=== PATIENT | male | born 1995 | race Caucasian/White ===

== ENCOUNTER 2019-11-19 16:15 | Observation (INO) | payer OTHER ==
[2019-11-19] VITALS (9 sets, daily range): BP systolic 131–154; BP diastolic 79–94
[~2019-11-19] VITALS: Ht 187 cm; Wt 93.2 kg
--- NOTE | 2019-11-19 16:26 | ED Abdominal Pain ---
General Chief Complaint: Abdominal/GI Problems Stated Complaint: ABD PAIN Source of Information: Patient Exam Limitations: No Limitations History of Present Illness Date Seen by Provider: Nov 19, 2019 Time Seen by Provider: 16:25 Initial Comments To ER with right lower quadrant abdominal pain That began Saturday afternoon. It has gotten progressively worse since then. A little bit of nausea after he eats but no diarrhea. No vomiting. No fevers or chills. The pain does not radiate. The location of the pain has not changed since Saturday. No history of this. Timing/Duration: 1-2 Days Severity/Quality: Moderate Location: RLQ Radiation: No Radiation Activities at Onset: None Associated Symptoms: Nausea/Vomiting Allergies and Home Medications Allergies Coded Allergies: No Allergy Information Available (Unverified , 11/19/19) Patient Home Medication List Home Medication List Reviewed: Yes Review of Systems Review of Systems Constitutional: see HPI; No chills, No fever EENTM: No Symptoms Reported Respiratory: No Symptoms Reported Cardiovascular: No Symptoms Reported Gastrointestinal: See HPI, Abdominal Pain; Denies Nausea, Denies Vomiting Genitourinary: No Symptoms Reported Musculoskeletal: no symptoms reported Skin: no symptoms reported Psychiatric/Neurological: No Symptoms Reported Hematologic/Lymphatic: No Symptoms Reported Past Pmfleax-Ydkjgb-Ljbtcy Hx Patient Social History Alcohol Use: Denies Use Recreational Drug Use: No Smoking Status: Never a Smoker Recent Foreign Travel: No Contact w/Someone Who Travel: No Recent Hopitalizations: No Seasonal Allergies Seasonal Allergies: No Past Medical History Surgeries: Yes (dental) Respiratory: No Cardiac: No Neurological: No Genitourinary: No Gastrointestinal: No Musculoskeletal: No Endocrine: No HEENT: No Cancer: No Psychosocial: Yes ADD/ADHD Blood Disorders: No Adverse Reaction/Blood Tranf: No Physical Exam Vital Signs Vital Signs - First Documented 11/19/19 16:30 Temp 36.9 Pulse 80 Resp 20 B/P (MAP) 168/91 (116) Pulse Ox 98 Capillary Refill : Height/Weight/BMI Height: '" Weight: lbs. oz. kg; BMI Method: General Appearance: WD/WN, no apparent distress Neck: non-tender, full range of motion Respiratory: no respiratory distress, no accessory muscle use Cardiovascular: regular rate, rhythm, no murmur Gastrointestinal: normal bowel sounds, soft, tenderness (right lower quadrant McBurney's point) Extremities: normal range of motion, non-tender Neurologic/Psychiatric: alert, normal mood/affect, oriented x 3 Skin: normal color, warm/dry Progress/Results/Core Measures Results/Orders Lab Results Laboratory Tests Test 11/19/19 16:28 Range/Units White Blood Count 5.8 4.3-11.0 10^3/uL Red Blood Count 5.00 4.35-5.85 10^6/uL Hemoglobin 14.9 13.3-17.7 G/DL Hematocrit 43 40-54 % Mean Corpuscular Volume 86 80-99 FL Mean Corpuscular Hemoglobin 30 25-34 PG Mean Corpuscular Hemoglobin Concent 35 32-36 G/DL Red Cell Distribution Width 12.2 10.0-14.5 % Platelet Count 246 130-400 10^3/uL Mean Platelet Volume 10.1 7.4-10.4 FL Neutrophils (%) (Auto) 58 42-75 % Lymphocytes (%) (Auto) 25 12-44 % Monocytes (%) (Auto) 14 H 0-12 % Eosinophils (%) (Auto) 1 0-10 % Basophils (%) (Auto) 1 0-10 % Neutrophils # (Auto) 3.4 1.8-7.8 X 10^3 Lymphocytes # (Auto) 1.5 1.0-4.0 X 10^3 Monocytes # (Auto) 0.8 0.0-1.0 X 10^3 Eosinophils # (Auto) 0.1 0.0-0.3 10^3/uL Basophils # (Auto) 0.0 0.0-0.1 10^3/uL Sodium Level 139 135-145 MMOL/L Potassium Level 3.9 3.6-5.0 MMOL/L Chloride Level 103 98-107 MMOL/L Carbon Dioxide Level 25 21-32 MMOL/L Anion Gap 11 5-14 MMOL/L Blood Urea Nitrogen 15 7-18 MG/DL Creatinine 1.11 0.60-1.30 MG/DL Estimat Glomerular Filtration Rate > 60 BUN/Creatinine Ratio 14 Glucose Level 89 70-105 MG/DL Calcium Level 9.2 8.5-10.1 MG/DL Corrected Calcium 8.8 8.5-10.1 MG/DL Total Bilirubin 0.8 0.1-1.0 MG/DL Aspartate Amino Transf (AST/SGOT) 15 5-34 U/L Alanine Aminotransferase (ALT/SGPT) 25 0-55 U/L Alkaline Phosphatase 79 40-136 U/L C-Reactive Protein High Sensitivity 4.35 H 0.00-0.50 MG/DL Total Protein 7.7 6.4-8.2 GM/DL Albumin 4.5 3.2-4.5 GM/DL My Orders Orders - MARGARETTE HOLT TRANSFER DRIVER Cbc With Automated Diff (11/19/19 16:24) Hs C Reactive Protein (11/19/19 16:24) Comprehensive Metabolic Panel (11/19/19 16:24) Ua Culture If Indicated (11/19/19 16:24) Ct Abd/Pelv W (Appendicitis) (11/19/19 16:24) Iohexol Injection (Omnipaque 350 Mg/Ml 1 (11/19/19 16:45) Received Contrast (Hold Metformin- Contr (11/19/19 16:45) Sodium Chloride Flush (Catheter Flush Sy (11/19/19 16:45) Ns (Ivpb) (Sodium Chloride 0.9% Ivpb Bag (11/19/19 16:45) Medications Given in ED Current Medications Medications Dose Ordered Sig/Jeff Route Start Time Stop Time Status Last Admin Dose Admin Iohexol 100 ml ONCE ONCE IV 11/19/19 16:45 11/19/19 16:46 DC 11/19/19 17:04 100 ML Sodium Chloride 10 ml NEEDED PRN IV 11/19/19 16:45 11/19/19 17:04 10 ML Sodium Chloride 100 ml ONCE ONCE IV 11/19/19 16:45 11/19/19 16:46 DC 11/19/19 17:04 80 ML Vital Signs/I&O 11/19/19 16:30 Temp 36.9 Pulse 80 Resp 20 B/P (MAP) 168/91 (116) Pulse Ox 98 Departure Communication (Admissions) Time/Spoke to Admitting Phy: 17:20 Dr. Hidalgo here to see the patient, plans to take to the operating room. Impression Primary Impression: Appendicitis Qualified Codes: K35.30 - Acute appendicitis with localized peritonitis, without perforation or gangrene Disposition: ADMITTED INPATIENT Condition: Stable Admissions Decision to Admit Reason: Admit from ER (General) Decision to Admit/Date: Nov 19, 2019 Time/Decision to Admit Time: 17:04 MARGARETTE HOLT APRN Nov 19, 2019 16:26
[2019-11-19 16:35] LABS: BASOPHILS % (AUTO) 1 % (0-10); EOSINOPHILS # (AUTO) 0.1 10^3/uL (0.0-0.3); EOSINOPHILS % (AUTO) 1 % (0-10); HEMATOCRIT 43 % (40-54); HEMOGLOBIN 14.9 G/DL (13.3-17.7); LYMPHOCYTES # (AUTO) 1.5 X 10^3 (1.0-4.0); LYMPHOCYTES % (AUTO) 25 % (12-44); MEAN CORPUSCULAR HEMOGLOBIN 30 PG (25-34); MEAN CORPUSCULAR HGB CONC 35 G/DL (32-36); MEAN CORPUSCULAR VOLUME 86 FL (80-99); MEAN PLATELET VOLUME 10.1 FL (7.4-10.4); MONOCYTES # (AUTO) 0.8 X 10^3 (0.0-1.0); MONOCYTES % (AUTO) 14 % (0-12); NEUTROPHILS # (AUTO) 3.4 X 10^3 (1.8-7.8); NEUTROPHILS % (AUTO) 58 % (42-75); PLATELET COUNT 246 10^3/uL (130-400); RED CELL DISTRIBUTION WIDTH 12.2 % (10.0-14.5); WHITE BLOOD COUNT 5.8 10^3/uL (4.3-11.0)
[2019-11-19] MEDS ORDERED: CATHETER FLUSH 10 ML SYR IV PRN (16:45)
[2019-11-19] MEDS ORDERED: NS 100 ML (IVPB) BAG IV ONE (16:45)
[2019-11-19] MEDS ORDERED: HOLD METFORMIN - RECEIVED CONTRAST 20 ML VIAL IV SCH (16:45)
[2019-11-19] MEDS ORDERED: IOHEXOL 350 MG/ML 100 ML (OMNIPAQUE 350) VIAL IV ONE (16:45)
[2019-11-19 16:49] LABS: ALBUMIN 4.5 GM/DL (3.2-4.5); CHLORIDE 103 MMOL/L (98-107); POTASSIUM 3.9 MMOL/L (3.6-5.0); SODIUM 139 MMOL/L (135-145)
[2019-11-19 16:50] LABS: CALCIUM 9.2 MG/DL (8.5-10.1)
[2019-11-19 16:51] LABS: GLUCOSE 89 MG/DL (70-105); TOTAL PROTEIN 7.7 GM/DL (6.4-8.2)
[2019-11-19 16:52] LABS: CARBON DIOXIDE 25 MMOL/L (21-32)
[2019-11-19 16:53] LABS: BILIRUBIN,TOTAL 0.8 MG/DL (0.1-1.0)
[2019-11-19 16:54] LABS: ALKALINE PHOSPHATASE 79 U/L (40-136)
[2019-11-19 16:55] LABS: CREATININE SERUM 1.11 MG/DL (0.60-1.30); GFR ESTIMATED > 60
[2019-11-19 16:56] LABS: BUN/CREATININE RATIO 14
[2019-11-19 16:58] LABS: ALANINE AMINOTRANSFERASE 25 U/L (0-55)
--- NOTE | 2019-11-19 17:19 | Diagnostic Imaging Report ---
CLINICAL INDICATION: Patient with right lower quadrant pain x2 days with nausea, fatigue, and loss of appetite. Rule out appendicitis. EXAM: Axial CT scan of the abdomen and pelvis performed with 100 mL of Omnipaque 350 IV contrast. Coronal and sagittal reformatted images were created. Auto Exposure Controls were utilized during the CT exam to meet ALARA standards for radiation dose reduction. COMPARISON: None. FINDINGS: Visualized lung bases are clear. Bones show no significant abnormality. There is a roughly 8 mm circumscribed low-density area involving the right lobe of liver near the dome, likely represents a cyst. Otherwise, liver is unremarkable. The spleen, pancreas, gallbladder, and adrenal glands are unremarkable. Both kidneys are unremarkable with no hydronephrosis, stone, or enhancing mass. Bladder is predominantly decompressed and unremarkable as visualized. There is diffuse enlargement of the appendix measuring at least 1.4 cm in greatest axial dimension. There is fat stranding adjacent to the appendix and there is ill-defined appendiceal wall due to the inflammation. There is no intra-abdominal free air or drainable fluid collection. There is no intestinal obstruction. Subcentimeter lymph nodes in the pericecal region are likely reactive. Prostate gland is unremarkable. There is no intra-abdominal free fluid seen. Intestines show no other significant abnormality. Extra-abdominal and extra-pelvis soft tissue structures are unremarkable. IMPRESSION: There is acute appendicitis with no evidence of abscess or intra-abdominal free air. Results of this report discussed with Josué Onofre APRN via the telephone on 11/19/2019 at 1715 hours. Dictated by: Dictated on workstation # [id number]
--- NOTE | 2019-11-19 17:29 | Consultation - Surgery ---
History of Present Illness History of Present Illness Patient Consulted On(judy/time) 11/19/19 17:24 Time Seen by Provider: 17:01 History of Present Illness Surgery asked to consult regarding RLQ pain. HPI per ED: To ER with right lower quadrant abdominal pain That began Saturday afternoon. It has gotten progressively worse since then. A little bit of nausea after he eats but no diarrhea. No vomiting. No fevers or chills. The pain does not radiate. The location of the pain has not changed since Saturday. No history of this. Timing/Duration: 1-2 Days Severity/Quality: Moderate Location: RLQ Radiation: No Radiation Activities at Onset: None Associated Symptoms: Nausea/Vomiting Pt states he has never had pain like this before, rates pain as 6 out of 10. Has been achey with occasional sharp pain. Allergies and Home Medications Allergies Coded Allergies: No Allergy Information Available (Unverified , 11/19/19) Patient Home Medication List Home Medication List Reviewed: Yes (Vivance) Past Zbgncqb-Wlwogv-Ufrsgu Hx Patient Social History Alcohol Use: Denies Use Recreational Drug Use: No Smoking Status: Never a Smoker Recent Foreign Travel: No Contact w/Someone Who Travel: No Recent Infectious Disease Expo: No Recent Hopitalizations: No Seasonal Allergies Seasonal Allergies: No Surgeries History of Surgeries: Yes (dental- wisdom teeth removed) Respiratory History of Respiratory Disorde: No Cardiovascular History of Cardiac Disorders: No Neurological History of Neurological Disord: No Genitourinary History of Genitourinary Disor: No Gastrointestinal History of Gastrointestinal Di: No Musculoskeletal History of Musculoskeletal Dis: No Endocrine History of Endocrine Disorders: No HEENT History of HEENT Disorders: No Cancer History of Cancer: No Psychosocial History of Psychiatric Problem: Yes Behavioral Health Disorders: ADD/ADHD Blood Transfusions History of Blood Disorders: No Adverse Reaction to a Blood Tr: No Family Medical History Significant Family History: Heart Disease (3 out of 4 Gparents with CABG), Other Conditions/Hx (pt states parents have no medical problems) Review of Systems-General Constitutional: No chills, No diaphoresis, No malaise EENTM: No blurred vision, No double vision, No mouth pain, No mouth swelling, No epistaxis Respiratory: No cough, No dyspnea on exertion Cardiovascular: No chest pain, No palpitations Gastrointestinal: abdominal pain; No nausea, No vomiting Genitourinary: No dysuria, No frequency, No hematuria Musculoskeletal: No joint pain, No joint swelling, No muscle pain, No muscle stiffness Skin: No change in color, No change in hair/nails Psychiatric/Neurological: Denies Anxiety, Denies Depressed, Denies Seizure, Denies Tremors Other pt denies any hx of abnormal bleeding or bruising Physical Exam-General Problems Physical Exam Vital Signs Vital Signs - First Documented 11/19/19 16:30 Temp 36.9 Pulse 80 Resp 20 B/P (MAP) 168/91 (116) Pulse Ox 98 Capillary Refill : Less Than 3 Seconds General Appearance: WD/WN, no apparent distress Eyes: Bilateral Eye PERRL, Bilateral Eye EOMI HEENT: pharynx normal; No scleral icterus (R), No scleral icterus (L) Neck: non-tender, full range of motion, supple, normal inspection Respiratory: chest non-tender, lungs clear, normal breath sounds, no respiratory distress, no accessory muscle use Cardiovascular: regular rate, rhythm, no murmur Gastrointestinal: soft, no organomegaly; No distended, No guarding, No rebound; tenderness (RLQ and flank) Back: no CVA tenderness, no vertebral tenderness Extremities: normal range of motion, non-tender, normal inspection, no pedal edema, no calf tenderness, normal capillary refill Neurologic/Psychiatric: livestock inspector II-XII nml as tested, no motor/sensory deficits, alert, normal mood/affect, oriented x 3 Skin: normal color, warm/dry Lymphatic: no adenopathy (neck, axilla or groin) Data Review Labs Laboratory Tests 11/19/19 16:28: White Blood Count 5.8, Red Blood Count 5.00, Hemoglobin 14.9, Hematocrit 43, Mean Corpuscular Volume 86, Mean Corpuscular Hemoglobin 30, Mean Corpuscular Hemoglobin Concent 35, Red Cell Distribution Width 12.2, Platelet Count 246, Mean Platelet Volume 10.1, Neutrophils (%) (Auto) 58, Lymphocytes (%) (Auto) 25, Monocytes (%) (Auto) 14H, Eosinophils (%) (Auto) 1, Basophils (%) (Auto) 1, Neutrophils # (Auto) 3.4, Lymphocytes # (Auto) 1.5, Monocytes # (Auto) 0.8, Eosinophils # (Auto) 0.1, Basophils # (Auto) 0.0, Sodium Level 139, Potassium Level 3.9, Chloride Level 103, Carbon Dioxide Level 25, Anion Gap 11, Blood Urea Nitrogen 15, Creatinine 1.11, Estimat Glomerular Filtration Rate > 60, BUN/Creatinine Ratio 14, Glucose Level 89, Calcium Level 9.2, Corrected Calcium 8.8, Total Bilirubin 0.8, Aspartate Amino Transf (AST/SGOT) 15, Alanine Aminotransferase (ALT/SGPT) 25, Alkaline Phosphatase 79, C-Reactive Protein High Sensitivity 4.35H, Total Protein 7.7, Albumin 4.5 Radiology Date of Exam:11/19/19 CT ABD/PELV W (APPENDICITIS) CLINICAL INDICATION: Patient with right lower quadrant pain x2 days with nausea, fatigue, and loss of appetite. Rule out appendicitis. EXAM: Axial CT scan of the abdomen and pelvis performed with 100 mL of Omnipaque 350 IV contrast. Coronal and sagittal reformatted images were created. Auto Exposure Controls were utilized during the CT exam to meet ALARA standards for radiation dose reduction. COMPARISON: None. FINDINGS: Visualized lung bases are clear. Bones show no significant abnormality. There is a roughly 8 mm circumscribed low-density area involving the right lobe of liver near the dome, likely represents a cyst. Otherwise, liver is unremarkable. The spleen, pancreas, gallbladder, and adrenal glands are unremarkable. Both kidneys are unremarkable with no hydronephrosis, stone, or enhancing mass. Bladder is predominantly decompressed and unremarkable as visualized. There is diffuse enlargement of the appendix measuring at least 1.4 cm in greatest axial dimension. There is fat stranding adjacent to the appendix and there is ill-defined appendiceal wall due to the inflammation. There is no intra-abdominal free air or drainable fluid collection. There is no intestinal obstruction. Subcentimeter lymph nodes in the pericecal region are likely reactive. Prostate gland is unremarkable. There is no intra-abdominal free fluid seen. Intestines show no other significant abnormality. Extra-abdominal and extra-pelvis soft tissue structures are unremarkable. IMPRESSION: There is acute appendicitis with no evidence of abscess or intra-abdominal free air. Results of this report discussed with Josué Onofre APRN via the telephone on 11/19/2019 at 1715 hours. Dictated on workstation # [id number] Dict: 11/19/19 1710 Trans: 11/19/19 1719 [facility] [id number] Interpreted by: DRAA ZABALA MD Assessment/Plan Assessment/Plan Assessment/Plan Acute Appendicitis - Retrocecal Pt has acute appendicitis and needs appendectomy. Plan to start IV fluids, IV ABX, pain control, anti-emetics as needed. Will go to the OR for Laparoscopic Appendectomy, possible open. Discussed the procedure with pt; risks and complications not limited to pain, bleeding, infection, scar, damage to bowel and need for further procedure. All questions answered to his satisfaction. Will probably send pt home tonight, unless there is a bad abscess not seen on CT. GRICELDA JEWELL DO Nov 19, 2019 17:29
[2019-11-19] MEDS ORDERED: fentaNYL INJECTION 100 MCG/2 ML AMP ONE ×2 (17:49→17:58)
[2019-11-19] MEDS ORDERED: MIDAZOLAM 2 MG/2 ML (VERSED) VIAL ONE (17:49)
[2019-11-19] MEDS ORDERED: BUP/EPI 0.5% 1:200,000 (MARCAINE) 10ML VIAL IJ ONE (17:51)
[2019-11-19] MEDS ORDERED: morphine INJ 10 MG/ML 1ML (SYR OR VIAL) ONE ×2 (17:57→18:45)
[2019-11-19] MEDS ORDERED: ONDANSETRON 4 MG/2 ML (SDV) Z0FRAN ONE ×2 (17:58→18:02)
[2019-11-19] MEDS ORDERED: NEOSTIGMINE 3 MG/3 ML VIAL ONE (18:02)
[2019-11-19] MEDS ORDERED: LIDOCAINE PF 2% 5 ML (XYLOCAINE) VIAL ONE (18:02)
[2019-11-19] MEDS ORDERED: GLYCOPYRROLATE 0.2 MG/ML (ROBINUL) 2 ML VIAL ONE (18:02)
[2019-11-19] MEDS ORDERED: SEVOFLURANE (ULTANE) 15 ML INHAL SOLN ONE ×8 (18:02→19:49)
[2019-11-19] MEDS ORDERED: proPOfol 200 MG/20 ML (DIPRIVAN) VIAL IV ONE (18:02)
[2019-11-19] MEDS ORDERED: ROCURONIUM 10 MG/ML 5 ML SYRINGE IV ONE (18:02)
[2019-11-19] MEDS: LACTATED RINGERS 1,000 ML IV PRN ×2 (18:05→19:18)
[2019-11-19] MEDS ORDERED: ceFAZolin INJECTION 2,000 MG ONE (18:18)
[2019-11-19] MEDS ORDERED: ceFAZolin 2 GM IV Premixed 50 ML IV ONE (18:45)
[2019-11-19] MEDS ORDERED: HYDROmorphone 2 MG/ML VIAL (DILAUDID) IV ONE (19:45)
[2019-11-19] MEDS ORDERED: morphine INJ 10 MG/ML 1ML (SYR OR VIAL) IVP ONE (19:45)
[2019-11-19] MEDS ORDERED: MEPERIDINE (DEMEROL) INJ 50 MG/ML IVP ONE (19:45)
[2019-11-19] MEDS ORDERED: ONDANSETRON 4 MG/2 ML (SDV) Z0FRAN IVP PRN (19:45)
--- NOTE | 2019-11-19 19:51 | Progress Note-Post Operative ---
Post-Operative Progess Note Surgeon (s)/Skin Tanner (s) Surgeon GRICELDA JEWELL DO Skin Tanner: EARL Perez and EARL Candelario Pre-Operative Diagnosis acute appy Post-Operative Diagnosis same Procedure & Operative Findings Date of Procedure 11/19/19 Procedure Performed/Findings lap appy Anesthesia Type GET Estimated Blood Loss Estimated blood loss (mL): minimal Specimens/Packing Specimens Removed GRICELDA Romero DO Nov 19, 2019 19:51
[2019-11-19] MEDS ORDERED: HYDR-4226 PO (19:57)
--- NOTE | 2019-11-19 19:58 | Discharge Inst-Surgical ---
Discharge Inst-Surgical Depart Medication/Instructions New, Converted or Re-Newed RX: RX Given to Pt/Family Patient Instructions Follow up Appt: Make appointment for 1 week. [phone] Instructions: No lifting greater than 20 pounds. No strenuous activity. May shower in 24 hours, no tub bath or soaking. Use incentive spirometer at home as directed. No Smoking Skin/Wound Care: May remove bandages in am. You need to leave the Dermabond on incision it will fall off on it's own. Symptoms to Report: Appetite Changes, Extremity Discoloration, Numbness/Tingling, Swelling Increased, Bleeding Excessive, Eyesight Changes, Pain Increased, Urine Color Change, Constipation(Persistent), Fever over 101 degree F, Pain/Pressure in chest, Urinating Difficulty, Cough Up/Vomit Blood, Heart Beat Irreg/Pounding, Pain/Pressure in jaw, Cramps in feet or legs, Lightheadedness, Pain/Pressure in shoulder, Diarrhea(Persistent), Memory Changes Suddenly, Questions/Concerns, Weight gain consecutive days, Dizziness/Fainting, Nausea/Vomiting, Shortness of Breath, Weight gain over 2 pounds If questions or concerns contact your physician Or seek help at emergency department. Activity Activity as Tolerated: Yes Activity Instructions: Avoid Stress to Incision Driving Instructions: No Driving/Refer to Dr. Kim Discharge Diet: No Restrictions Diet After 24 Hours: Clear Liquid if Nauseous If Any Problems/Questions/Issu: Contact Your Physician, Go to Emergency Room Skin/Wound Care Infection Signs and Symptoms: Increased Redness, Foul Odor of Wound, Increased Drainage, Skin Itchy or Has a Rash, Increased Swelling, Temperature Above 101 F Wound Care Comment: Heating pad to shoulder or neck tonight for pain. Bathing Instructions: Shower Stitches/Margaret/Dermabond Dis: Dermabond Ice Pack: Ice On and Off Site GRICELDA JEWELL DO Nov 19, 2019 19:58
--- NOTE | 2019-11-19 21:32 | Anesthesia-General Post-Op ---
General Patient Condition Mental Status/LOC: Same as Preop Cardiovascular: Satisfactory Nausea/Vomiting: Absent Respiratory: Satisfactory Pain: Controlled Complications: Absent Post Op Complications Complications None Follow Up Care/Instructions Patient Instructions None needed. Anesthesia/Patient Condition Patient Condition Patient is doing well, no complaints, stable vital signs, no apparent adverse anesthesia problems. No complications reported per nursing. ALEXANDRE GOODWIN CRNA Nov 19, 2019 21:32
[2019-11-19] MEDS ORDERED: HYDROcodone/APAP 5 MG/325 MG (LORTAB) TAB PO ONE (22:00)
[2019-11-19] MEDS ORDERED: ONDANSETRON 4 MG (ZOFRAN) ORAL DISSOLVE TAB PO ONE (22:15)
[2019-11-20 01:39] VITALS: BP 136/74
[2019-11-20] MEDS ORDERED: LACTATED RINGERS 1,000 ML IV ONE (01:55)
[2019-11-20] MEDS ORDERED: LACTATED RINGERS 1,000 ML IV SCH (02:15)
[2019-11-20] MEDS ORDERED: ONDANSETRON 4 MG (ZOFRAN) ORAL DISSOLVE TAB PO PRN (02:15)
[2019-11-20] MEDS ORDERED: morphine INJ 4 MG/ML 1 ML (VIAL/SYRINGE) IVP PRN (02:15)
[2019-11-20 04:00] VITALS: BP 119/68
[2019-11-20 04:45] VITALS: BP 125/80
--- NOTE | 2019-11-20 05:17 | NUR ---
2129 - Report received from pipe recovery specialist, This RN to room to assess patient, pt reports abd pain 10/01, ice was applied to abdomen to help with pain. Pt AO and on RA, this RN went over discharge paperwork with pt, instructed pt to walk, urinate, and drink water before discharge. Notified housekeeping lead of continued pain and prescription written by Dr. Hidalgo for pain medication, unable to fill script due to pharmacies being closed at this time. Dr. Hidalgo notified of continued pain and pts inability to fill his script until morning, order received for hydrocodone 5/325 PO once now. This RN to room to give pain medication, pt began feeling nausous and dry heaving, bucket and wet wash cloth provided. Dr. Hidalgo notified of nausea of removal of IV, order received for Zofran 4mg PO once now. 2144 - Zofran given to pt, sprite and saltine crackers provided. 2229 - Pt assisted to side of bed, continued nausea at this time. 2299 - Pain medication administered at this time as ordered by Dr. Hidalgo, pt has been unable to void, encouraged to stand up to use urinal and pt assisted to toilet. 0000 - VSS currently, abd pain 06/01, assisted pt to ambulate in frias. 0200 - pt has urinated at this time in the toilet, pt has vomited, Dr. Hidalgo notified, new orders received to keep pt overnight, start new IV, start LR at 150, Zofran 4mg PO q4 PRN, 2mg morphine q2 PRN pain. Pt notified of new orders and plan to keep overnight. 0230 - 20g IV started to right forearm, fluids connected, zofran given as ordered. will continue to monitor. 0500 - Pt assisted to toilet to void.
[2019-11-20 06:00] VITALS: BP 119/69
[2019-11-20 07:00] VITALS: BP 114/70
--- NOTE | 2019-11-20 07:50 | NUR ---
Dr Hidalgo notified of pt request for Zofran for n/v. order obtained and called to preferred pharmacy. pt information for discharge reviewed with prior shift. pt will leave icu to go home with s/o. he is remaining to take quiz for school before departure.
== END 2019-11-20 07:55 | disposition home or self-care (01) ==
LOC: ER 16:18 → SDC 17:50 → ICU 17:51 → UNDOADMOB 11-20 02:00 → UNDODISOB 11-20 08:10
PROVIDERS: ADMIT Surgery; ATTEND Surgery
DX: K35.80 Unspecified acute appendicitis (principal); F90.9 Attention-deficit hyperactivity disorder, unspecified type
CPT/HCPCS: 44970; 74177; 80053; 85025; 86141; 88304; 99285; G0378; 36415

== ENCOUNTER → 2020-02-29 | Outpatient (CLI) | payer OTHER ==
[~2020-02-29] MED LIST: HYDR-4226 PO
--- NOTE | 2020-02-29 16:44 | Diagnostic Imaging Report ---
EXAMINATION: Magnetic resonance imaging of the left knee without intravenous contrast. DATE: February 29, 2020. COMPARISON: None. INDICATION: 24-year-old male, left knee pain. Injury. TECHNIQUE: Multiplanar, multisequence noncontrast enhanced MR imaging was accomplished. FINDINGS: MENISCI: The medial meniscus is intact. The lateral meniscus is intact. LIGAMENTS AND TENDONS: The anterior cruciate ligament is intact. There is increased signal in the posterior cruciate ligament without a complete tear of the posterior cruciate ligament. This potentially could relate to a sprain injury. The medial collateral ligament is intact. The iliotibial band, mid third lateral capsular ligament, fibular collateral ligament, biceps femoris tendon, and conjoined tendon are intact. The quadriceps tendon and patella ligament are intact. JOINT: The articular cartilage surfaces are intact. There is no knee joint effusion, prominent synovitis, or intra-articular body. BONE: There is unremarkable bone marrow signal. Specifically, negative for fracture, osteomyelitis, osteonecrosis, or marrow replacing process. BURSAE AND SOFT TISSUES: There is no Rubin's cyst. Additional soft tissue assessment is unremarkable. IMPRESSION: 1. Increased signal in the posterior cruciate ligament without complete tear of the ligament which could relate to a sprain injury. The anterior cruciate ligament is intact. 2. Intact medial and lateral meniscus. 3. Additional ligaments and tendons are intact. 4. No acute fracture or bone contusion. 5. Intact articular cartilage. No knee joint effusion. Dictated by: Dictated on workstation # [id number]
== END ==
LOC: RAD 15:30
DX: M25.562 Pain in left knee (principal)
CPT/HCPCS: 73721